=== PATIENT | male | born 1945 | race Caucasian/White ===

== ENCOUNTER 2023-07-03 13:44 | Outpatient (RCR) | payer MEDICARE, BC, SELFPAY ==
[2023-06-11] MEDS: VENOFER 110 MG IV (14:14)
[2023-06-11 14:15] VITALS: BP 139/81
[2023-06-11 15:45] VITALS: BP 129/75
[2023-06-14] MEDS: VENOFER 110 MG IV (14:13)
[2023-06-14 14:18] VITALS: BP 142/75
[2023-06-14 15:15] VITALS: BP 120/69
[2023-06-19 13:52] VITALS: BP 129/70
[2023-06-19] MEDS: VENOFER 110 MG IV (14:03)
[2023-06-19 15:20] VITALS: BP 129/72
[2023-06-26 13:45] VITALS: BP 136/74
[2023-06-26] MEDS: VENOFER 110 MG IV (13:52)
[2023-06-26 14:54] VITALS: BP 133/83
[2023-07-03 13:45] VITALS: BP 133/74
[2023-07-03] MEDS: VENOFER 110 MG IV (13:59)
[2023-07-03 15:02] VITALS: BP 133/72
== END 2023-07-03 23:59 | disposition home or self-care (01) ==
LOC: OID 13:44
PROVIDERS: ATTENDING PHYSICIAN Internal Medicine; FAMILY PHYSICIAN Student in an Organized Health Care Education/Training Program
DX: N18.31 Chronic kidney disease, stage 3a (principal); D63.1 Anemia in chronic kidney disease; D50.9 Iron deficiency anemia, unspecified
CPT/HCPCS: 96365; J1756